=== PATIENT | male | born 2000 | race African-American/Black ===

== ENCOUNTER 2020-01-22 11:13 | Emergency (ER) | payer OTHER ==
[~2020-01-22] VITALS: Ht 182.9 cm; Wt 65.8 kg
[2020-01-22 11:16] VITALS: BP 106/47
[2020-01-22] MEDS ORDERED: PENICILLIN VK500 M1 PO (11:42)
[2020-01-22] MEDS ORDERED: MOBIC7.5 MG PO (11:42)
== END 2020-01-22 11:57 | disposition home or self-care (01) ==
LOC: ER 11:13
DX: K05.10 Chronic gingivitis, plaque induced (principal); K01.1 Impacted teeth; Z87.891 Personal history of nicotine dependence